=== PATIENT | male | born 1985 | race Caucasian/White ===

== ENCOUNTER 2017-08-18 15:22 | Emergency (ER) | payer OTHER ==
[~2017-08-18] VITALS: Ht 175.3 cm; Wt 70.3 kg
[2017-08-18 15:50] LABS: *BILIRUBIN,URIN NEGATIVE (NEGATIVE); *BLOOD, URINE NEGATIVE (NEGATIVE); *CLARITY,URINE CLEAR (CLEAR); *COLOR,URINE YELLOW (YELLOW); *KETONES,URINE NEGATIVE (NEGATIVE); *PROTEIN,URINE NEGATIVE (NEGATIVE); *UROBILINOGEN,URINE 0.2 E.U./dl (NORMAL); LEUKOCYTE ESTERASE ,URINE NEGATIVE (NEGATIVE); NITRITE, URINE NEGATIVE (NEGATIVE); PH,URINE 7.5 (5.0-8.0); UGLUCOSE NEGATIVE (NEGATIVE)
[2017-08-18 16:00] LABS: WBC,URINE 0-3 /HPF (0-3)
[2017-08-18] MEDS ORDERED: CEFTRIAXONE 500 MG VIAL IM ONE (16:00)
[2017-08-18 16:01] LABS: MUCUS,URINE MANY /LPF (0-FEW)
[2017-08-18] MEDS ORDERED: CEFTRIAXONE 500 MG VIAL ONE (16:17)
[2017-08-18] MEDS ORDERED: LIDOCAINE HCL 1% 20 ML VIAL ONE (16:18)
== END 2017-08-18 16:30 | disposition home or self-care (01) ==
LOC: ER 15:22
DX: Z20.2 Contact with and (suspected) exposure to infections with a predominantly sexual mode of transmission (principal)
CPT/HCPCS: 36415; 81001; 87086; 87806; 96372; 99284; A4663; J0696; J3490